=== PATIENT | male | born 1970 | race Two or more races ===

== ENCOUNTER 2022-05-01 08:10 | Emergency (ER) | payer OTHER ==
[~2022-05-01] VITALS: Ht 182.9 cm; Wt 86.2 kg
[~2022-05-01 08:10] MED LIST: KETO10TA2 PO; METFORMIN HCL500 M1; ORPH100T PO; WELLBUTRIN XL150 MG
[2022-05-01] MEDS ORDERED: NORVASC5 MG PO (08:45)
[2022-05-01] MEDS ORDERED: ZESTRIL5 MG (08:45)
[2022-05-01] MEDS ORDERED: JANUMET 50-1,01 EACH PO (08:46)
[2022-05-01] MEDS ORDERED: JARDIANCE25 MG PO (08:46)
[2022-05-01] MEDS ORDERED: CYCLOBENZAPRINE10 MG PO (11:46)
[2022-05-01] MEDS ORDERED: DICLOFENAC POTA50 MG PO (11:46)
== END 2022-05-01 13:38 ==
LOC: ER 08:10
DX: S83.91XA Sprain of unspecified site of right knee, initial encounter (principal); W05.0XXA Fall from non-moving wheelchair, initial encounter; Z91.81 History of falling; Y93.9 Activity, unspecified; Y92.009 Unspecified place in unspecified non-institutional (private) residence as the place of occurrence of the external cause; Y99.9 Unspecified external cause status; M25.561 Pain in right knee

== ENCOUNTER 2023-09-15 14:15 | Emergency (ER) | payer OTHER ==
[~2023-09-15] VITALS: Ht 182.9 cm; Wt 83.9 kg
[~2023-09-15 14:15] MED LIST changes: +CYCLOBENZAPRINE10 MG PO; +DICLOFENAC POTA50 MG PO; +JANUMET 50-1,01 EACH PO; +JARDIANCE25 MG PO; +NORVASC5 MG PO; +ZESTRIL5 MG
[2023-09-15] MEDS ORDERED: METOPROLOL SUC100 MG PO (14:34)
[2023-09-15] MEDS ORDERED: LANTUS SOL100 UNIT/1 SQ (14:34)
[2023-09-15] MEDS ORDERED: TAMSULOSIN HCL0.4 MG PO (14:35)
[2023-09-15] MEDS ORDERED: ROSUVASTATIN CA40 MG PO (14:35)
[2023-09-15] MEDS ORDERED: ZOLPIDEM TARTRA10 MG PO (14:35)
[2023-09-15 17:01] LABS: HEMATOCRIT 45.2 % (39.0-48.0); HEMOGLOBIN 15.6 g/dL (13-16.00); MEAN CELL VOLUME 89.8 fL (80.0-100.00); MEAN CORPUSCULAR HGB CONC 34.5 g/dl (32.0-36.0); PLATELET COUNT 233 K/uL (150-450); RED BLOOD COUNT 5.03 M/uL (4.00-6.00); RED CELL DISTRIBUTION WIDTH 13.3 % (11.5-14.5)
[2023-09-15 17:31] LABS: CALCIUM 8.6 mg/dL (8.5-10.1); CREATININE SERUM 1.09 mg/dL (0.70-1.30); GFR 70.23; POTASSIUM 3.29 mEq/L (3.5-5.1)
[2023-09-15 22:00] LABS: URINE APPEARANCE Clear; URINE BILIRRUBIN Negative (NEGATIVE); URINE BLOOD Negative; URINE COLOR Yellow; URINE LEUKOCYTE Negative; URINE NITRATE Negative; URINE PROTEIN Negative (NEGATIVE); URINE UROBILINOGEN 0.2 E.U./dl
[2023-09-15 22:03] LABS: URINE BACTERIA 13.8 uL (0.0-1933); URINE EPITHELIAL CELLS 7.7 uL (0.0-38.8); URINE WBC 7.7 uL (0.0-23.2)
[2023-09-15 22:30] LABS: COCAINE POSITIVE (NEGATIVE); METHADONE NEGATIVE (NEGATIVE); OPIATES NEGATIVE (NEGATIVE); THC ( Cannabinoids) NEGATIVE (NEGATIVE)
[2023-09-16 07:15] LABS: URINE GLUCOSE >=1000 MG/DL (NEGATIVE); URINE RBC 0.5 uL (0.0-20.8)
== END 2023-09-16 14:45 | disposition home or self-care (01) ==
LOC: ER 14:15
PROVIDERS: Emergency Medicine
DX: F10.929 Alcohol use, unspecified with intoxication, unspecified (principal); F14.10 Cocaine abuse, uncomplicated; R41.82 Altered mental status, unspecified; E11.9 Type 2 diabetes mellitus without complications; Z79.4 Long term (current) use of insulin; I10 Essential (primary) hypertension
CPT/HCPCS: 36415; 70450; 93005; 96365; 96366; 99285; J3411; J3490